=== PATIENT | male | born 1940 | race Caucasian/White ===

== ENCOUNTER 2024-08-24 15:21 | Inpatient (IN) | payer OTHER, SELFPAY ==
[2024-08-24] VITALS (15 sets, daily range): BP systolic 73–112; BP diastolic 53–84; BMI 26.4; BMI 26.8
[2024-08-24 12:05] LABS: % Basophils 0.4 % (0-2); % Eosinophils 2.1 % (0-6); % Immature Granulocytes 0.3 % (0-0.5); % Lymphocytes 24.1 % (20.5-51.1); % Monocytes 17.2 % (1.7-9.3); % Neutrophils 55.9 % (42.2-75.2); Absolute Eosinophils 0.2 10^3/uL (0-0.7); Absolute Lymphocytes 1.8 10^3/uL (1.2-3.4); Absolute Monocytes 1.3 10^3/uL (0.1-0.6); Absolute Neutrophils 4.2 10^3/uL (1.4-6.5); Hematocrit 46.8 % (39.0-52.0); Hemoglobin 15.8 g/dL (13.0-18.0); Mean Corp Hgb Conc. 33.8 g/dL (33.0-37.0); Mean Corpuscular Hgb 29.8 pg (27.0-31.0); Mean Corpuscular Volume 88.1 fL (80.0-94.0); Mean Platelet Volume 9.3 fL (7.4-10.4); Nucleated Red Blood Cells % 0 % (-); Platelet Count 198 10^3/uL (130-400); Red Blood Cell Count 5.31 10^6/uL (4.70-6.10); Red Cell Dist. Width 13.6 % (11.5-14.5); White Blood Cell Count 7.5 10^3/uL (4.8-10.8)
[2024-08-24 12:27] LABS: ALT (SGPT) 34 U/L (0-50); AST (SGOT) 82 U/L (17-59); Albumin 4.4 g/dl (3.5-5.0); Alkaline Phosphatase 36 U/L (38-126); Blood Urea Nitrogen 40 mg/dl (9-20); Calcium 9.2 mg/dl (8.4-10.2); Carbon Dioxide 24 mmol/L (22-30); Chloride 97 mmol/L (98-107); Estimated Creatinine Clearance 44 ml/min; Glucose 107 mg/dl (70-99); Potassium 3.8 mmol/L (3.5-5.1); Sodium 136 mmol/L (135-145); Total Bilirubin 0.5 mg/dl (0.2-1.3); Total Protein 6.9 g/dl (6.3-8.2); eGFR > 60.00
--- NOTE | 2024-08-24 12:27 | ED.GENMED ---
History of Present Illness
General
Chief Complaint: Weakness
Source: patient and spouse
Exam Limitations: none
Time Seen by Provider: 08/24/24 11:59
Nursing documentation reviewed up to this point in time: agreed with
History of Present Illness
History of Present Illness:
84 yo male w h/o NIDDM, HTN, HLD, CHF, diagnosed with Covid 4 days ago, has had sinus stuffiness and blowing nose a lot. Has a chronic cough from COPD and states that's no worse. Denies fever/chills. Denies n/v/d/c.
Is here for general weakness, denies dizziness but feel weak and 'my legs give out.' Fell 3 days ago getting OOB, fell yesterday in bathroom after BM, today at 7:30 a.m. heard a thud in bathroom, yelled 'where are you?' He states 'I'm in bed,'
she went to the bathroom and found him 'sprawled out on the floor on his back.' Asked 'are you alright?' He stated 'yeah.' states he's been appropriately responding since. She help him up and walked him to bed.
Pt denies hitting head or any other injury from falls. Not anticoagulated.
Past History
Past History
ED Past Medical History: Cancer (kidney), CHF, COPD, HTN, Hypercholesterolemia and NIDDM
ED Past Surgical History: Cardiac (stent x 2) and Other
Social History
Tobacco: Former smoker
Alcohol: None
Personal:
Living: with family
Employment: Retired
Review of Systems
Review of Systems
Allergies reviewed?: Yes
All Other Systems: ROS reviewed and negative except as documented in HPI and ROS
Constitutional: Reports fatigue; Denies fever
EENT: Denies sore throat
Respiratory: Reports cough (chronic intermittent); Denies trouble breathing
Cardiac: Denies chest pain, diaphoresis, palpitations or syncope
ABD/GI: Reports anorexia; Denies abdominal pain, nausea, vomiting or diarrhea
: Denies dysuria, frequency or difficulty voiding
Musculoskeletal: Reports no symptoms
Skin: Reports no symptoms
Neurological: Reports weakness (generalized, 'my legs give out.'); Denies dizzy or headache
Phy Exam
Physical Exam
Physical Exam:
GENERAL: No acute distress. A&Ox3.
CONSTITUTIONAL: Afebrile.
EYES: clear, conjunctivae normal
ENMT: moist mucus membranes, Pharynx nl
RESPIRATORY: Regular respirations, nonlabored, lungs with coarse sounds L lower lung field. Occasional cough, no hypoxemia
CARDIOVASCULAR: Irregular rhythm on bedside monitor. Rate 90'2 -120's. no murmurs, no rubs.
GI: Soft, nontender, normal BS
MUSCULOSKELETAL: Moves with ease. Well perfused.
SKIN: Warm, dry, pink
PSYCH: Normal mood and affect. Well kept, interactive and appropriate
NEUROLOGIC: Awake, alert and oriented. No focal neurological deficits
Course
Orders/Labs/Results
Orders:
Orders
08/24/24 11:31
Electrocardiogram (*1) Urgent
Reason for Study: Fatigue / Weakness
EKG- Treatment ONCE
08/24/24 11:50
CMP [Comprehensive Metabolic Panel] Urgent
Complete Blood Count/With Diff Urgent
TSH Reflex To Free T4 Urgent
Comment: ADD ON
08/24/24 12:27
CR Chest - 2 Views Urgent
Comment:
Reason For Exam: weakness, covid+
08/24/24 12:36
Add On- LAB Urgent
Tests Added?: TSH reflex T4
08/24/24 13:06
0.9% Sodium Chloride 500 ml [Nss] 500 ml IV BOLUS
08/24/24 13:07
NT-proBNP Urgent
Troponin I Urgent
Influenza A+B Rapid Molecular Urgent
NURY Source: Nasal Swab
Specimen Description:
08/24/24 13:11
Add On- LAB Urgent
Tests Added?: BNP
Abnormal Lab Results
08/24/24 08/24/24
11:50 13:07
Absolute Monos (auto) 1.3 H 10^3/uL
(0.1-0.6)
Monocytes % 17.2 H %
(1.7-9.3)
Chloride 97 L mmol/L
(98-107)
BUN 40 H mg/dl
(9-20)
Glucose 107 H mg/dl
(70-99)
AST 82 H U/L
(17-59)
Alkaline Phosphatase 36 L U/L
(38-126)
Troponin I 0.163 H* ng/ml
08/24/24 11:50
08/24/24 11:50
Vital Signs
Initial and Last Documented VS:
Initial Vital Signs
Temp Pulse Resp BP Pulse Ox
98.5 F 51 20 83/57 94
08/24/24 10:50 08/24/24 10:50 08/24/24 10:50 08/24/24 10:50 08/24/24 10:50
Last Documented Vital Signs
Temp Pulse Resp BP Pulse Ox
98.5 F 51 20 83/57 94
08/24/24 10:50 08/24/24 10:50 08/24/24 10:50 08/24/24 10:50 08/24/24 10:50
MDM/Problems Addressed
Differential Diagnosis Includes:
dehydration, Covid, Flu, PNA
New onset Afib, [place],
MDM/Problems Addressed:
84 yo male w h/o NIDDM, HTN, HLD, CHF, diagnosed with Covid 4 days ago, has had sinus stuffiness and blowing nose a lot. Has a chronic cough from COPD and states that's no worse. Denies fever/chills. Denies n/v/d/c.
Is here for general weakness, denies dizziness but feel weak and 'm legs give out.' Fell 3 days ago getting OOB, fell yesterday in bathroom after BM, today at 7:30 a.m. heard a thud in bathroom, yelled 'where are you?' He states 'I'm in bed,'
she went to the bathroom and found him 'sprawled out on the floor on his back.' Asked 'are you alright?' He stated 'yeah.' states he's been appropriately responding since. She help him up and walked him to bed.
Pt denies hitting head or any other injury from falls. Not anticoagulated.
Bedside monitor A fib, no hx Afib
1:10 p.m.
BP 81/57 HR 103 Fluid bolus ordered
EKG: A Fib w RVR rate 101
CBC normal
CMP: BUN 40 otherwise unremarkable
1:50 p.m.
Troponin 0.163
After IVF 500 ml BP 94/63 HR 103
Pt remains alert, pleasant
Plan: Admit: Covid, generalize weakness, dehydration, New onset afib, elevated Troponin (likely due to Covid infection and volume depletion, will defer anticoagulation to Hospitalist and cardiology
Hospitalist notified of admission
*Critical Care Note
Total Time (30-74mins, 75-104mins- exclusive of procedures): Not Applicable
ED Attending Note
-
Portions of this chart may have been created with voice recognition software.� Occasional wrong word or��sound alike� substitutions may have occurred due to the inherent limitations of voice recognition software.
Discharge Plan
Departure
Patient Disposition: Admit
Date of Disposition: 08/24/24
Time of Disposition: 14:00
Admit to: Telemetry
Presentation/result/management discussed w/ accepting MD/DO: Hospitalist
Condition: Fair
Discharge Problem:
New onset a-fib, COVID-19, Acute dehydration, General weakness, Fall
Prescriptions:
No Action
aspirin 325 mg Tablet
325 mg PO DAILY
Theragen Tablet
1 tab PO DAILY
losartan 100 mg Tablet
100 mg PO QPM
vitamin E 268 mg (400 unit) Capsule
268 mg PO DAILY
coenzyme Q10 [Co Q-10] 100 mg Capsule
100 mg PO DAILY
rosuvastatin 40 mg Tablet
40 mg PO QPM
cholecalciferol (vitamin D3) 25 mcg (1,000 unit) Tablet
25 mcg PO DAILY
hydrochlorothiazide 12.5 mg Tablet
12.5 mg PO DAILY
cod liver oil Capsule
1 cap PO DAILY
ascorbic acid (vitamin C) [Vitamin C] 500 mg Tablet
500 mg PO BID
loratadine 10 mg Tablet
10 mg PO DAILY
Healthy Eyes 300 mcg-200 mg-27 mg-2 mg Tablet
1 tab PO DAILY
Neuriva Original 50-50 mg Tablet,Chewable
1 tab PO DAILY
ashwagandha extract 100 mg tablet
100 mg PO DAILY
turmeric 2,250 mg tablet
1 tab PO DAILY
metformin 500 mg Tablet
500 mg PO DAILY
metoprolol tartrate 25 mg Tablet
25 mg PO BID
Referrals:
UNKNOWN - PT DOES,NOT KNOW [Family Provider] -
Interventions
Interventions:
*Risk Screen - Suicide Last Done: 08/24/24 10:50
*General Assessment Last Done: 08/24/24 10:50
*Neglect/Abuse Screening Last Done: 08/24/24 10:50
ED- Fall Risk Assessment Last Done: 08/24/24 11:29
*ED COVID-19 Vaccine History Last Done: 08/24/24 10:50
ED- Cardiac Assessment Last Done: 08/24/24 11:29
ED- Neurological Assessment Last Done: 08/24/24 11:29
ED- Pulmonary Assessment Last Done: 08/24/24 11:29
Discharge Date and Time
Print Language: SINHALA
[2024-08-24] MEDS: NSS 500 IV ×2 (13:10→15:30)
[2024-08-24 13:43] LABS: Troponin I 0.163 ng/ml
[2024-08-24 13:47] LABS: TSH Reflex To Free T4 4.12 uIU/ml (0.47-4.68)
--- NOTE | 2024-08-24 14:05 | HPS.HSE ---
Addendum entered and electronically signed by West Mccauley MD 08/24/24 15:12:
I saw and examined the patient.
The ASSOCIATE's note was reviewed and I agree with the note.
Comment:
84-year-old male extensive past medical history of CAD status post stents x 2 approximately 20 years ago, primary hypertension, hyperlipidemia, COPD/emphysema, renal cancer status post nephrectomy, suspected diabetes who is presenting from home with
complaint of weakness. Patient had fall at home. Patient was also complaining of weakness. Patient denies hitting her head. Denies any prior history of falls. Denies any prior history of gastrointestinal bleeding, hematuria or hemoptysis
hemorrhagic stroke. Denies any known contraindication to anticoagulation. Denies any productive cough. States feeling better after receiving IV fluids. Denies any chest pain. Denies any nausea or vomiting. Said my legs gave out at home but now
feeling better.
General no acute distress, talkative
HEENT neck is supple, trachea is midline, hide glasses noted
Cardiac S1-S2 irregularly irregular heart rate around 90-110 on telemetry
Pulmonary nonlabored respiration, not tachypneic, anterior clear to auscultation
Abdomen positive bowel sounds soft nontender nondistended
Extremities no edema
Neuro awake alert oriented, nonfocal grossly intact
Psych pleasant
Acute COVID-19 infection
On room air stable
Chest x-ray with COPD emphysema. No focal infiltrates noted.
Symptomatic management.
No need for systemic steroids
New onset of atrial fibrillation with rapid ventricular response
Currently heart rate around 90-110
Continue with Lopressor 25 mg twice daily
Elevated Dayne Vasc score of 5. 6 if with hx of heart failure.
Patient agreed to be started on anticoagulation.
Start patient on Eliquis 5 mg twice daily eventually. Will start patient on hep gtt for now.
Elevated troponin
CAD status post stents x 2
If Eliquis started may need to consider decreasing dose of aspirin
Continue with beta-andrea, statin.
Check echocardiogram
EKG with irregularly irregular atrial fibrillation with rapid ventricular response. Ventricular rate of 101. QTc of 451. No significant ST or T wave changes noted
Did not have chest pain at home. Currently denies chest pain.
Troponin elevation likely could be multifactorial due to new onset of atrial fibrillation, COVID-19 infection, dehydration etc. Trend trop for now. If continues to trend up may require ischemic work up.
[facility] at [place].
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
Trend cr.
no prior baseline labs
Primary hypertension now with mild hypotension
Continue with Lopressor
Hold hydrochlorothiazide and losartan for now
Additional 500 cc IV fluids
Hyperlipidemia
Continue with statin
Diabetes mellitus
Hold metformin
Check A1c
ISS and Accu-Cheks
DVT prophylaxis-hep gtt
Full code
I spent a total of 78 minutes with the patient or on the floor. More than 50% of this time involved counseling and coordination of care.
Original Note:
Family Physician
-
Family Physician: NOT KNOW UNKNOWN - PT DOES
Chief Complaint
-
Weakness
History of Present Illness
Patient is a 84-year-old male with past medical history significant for hypertension, COPD, NIDDM, CAD and hyperlipidemia who presented to [facility] for evaluation of generalzed weakness and Covid. Patient reports approximately 5 days ago he
tested positive for Covid after several days of sinus congestion and pressure. He did go to [place] [facility] in which they confirmed Covid positive and did not order paxlovid as he was too far out of window. Since then he reports continued sinus pressure
and drainage with cough from post nasal drip and has generalized weakness resulting in 2 falls and denies any injuries or hitting head. He denies any fever, chills, chest pain, palpitations, shortness of breath, nausea, vomiting, constipation,
diarrhea or urinary symptoms.
Medical History
Past Medical History
Past Medical History: Reports Other
Additional Past Medical History:
hypertension
COPD
CAD
NIDDM
hyperlipidemia
hx kidney ca
Past Surgical History: Reports Other
Additional Past Surgical History:
Cardiac stent x2
Hernia repair
tumor removal from kidney
Social History
Tobacco: Former Smoker (quit 25 years ago, has 50 pack year history )
Alcohol: Former (stopped drinkin 50 years ago)
Drug: None
Personal:
Living: With Family
Employment: Retired
Family History
Family History: Not pertinent
Allergies / Home Medications
Allergies reflects when Allergies were last updated in [facility].
Home Medications with original date entered in [facility]
Allergy/Medication List:
Allergies
Allergy/AdvReac Type Severity Reaction Status Date / Time
No Known Allergies Allergy Unverified 08/24/24 10:55
Home Medications
ascorbic acid (vitamin C) 500 mg tablet (Vitamin C) 500 mg PO BID 08/24/24
ashwagandha extract 100 mg PO DAILY 08/24/24
aspirin 325 mg tablet 325 mg PO DAILY 08/24/24
cholecalciferol (vitamin D3) 25 mcg (1,000 unit) tablet 25 mcg PO DAILY 08/24/24
cod liver oil 1 cap PO DAILY 08/24/24
coenzyme Q10 100 mg capsule (Co Q-10) 100 mg PO DAILY 08/24/24
coffee extract 50 mg-phosphatidyl serine 50 mg chewable tablet (Neuriva Original) 1 tab PO DAILY 08/24/24
hydrochlorothiazide 12.5 mg tablet 12.5 mg PO DAILY 08/24/24
loratadine 10 mg tablet 10 mg PO DAILY 08/24/24
losartan 100 mg tablet 100 mg PO QPM 08/24/24
metformin 500 mg tablet 500 mg PO DAILY 08/24/24
metoprolol tartrate 25 mg tablet 25 mg PO BID 08/24/24
rosuvastatin 40 mg tablet 40 mg PO QPM 08/24/24
therapeutic multivitamin 1 tab PO DAILY 08/24/24
turmeric 1 tab PO DAILY 08/24/24
vit A 300 mcg-C 200 mg-E 27 mg-lutein 2 mg and minerals tablet (Healthy Eyes) 1 tab PO DAILY 08/24/24
vitamin E 268 mg (400 unit) capsule 268 mg PO DAILY 08/24/24
Review of Systems
-
History Source: Patient
Constitutional: Reports Fatigue
EENT: Reports Runny Nose and Other (sinus pressure)
Respiratory: Reports Cough (intermittent from post nasal drip)
Cardiac: Reports No Symptoms
Abdomen/GI: Reports No Symptoms
: Reports No Symptoms
Musculoskeletal: Reports No Symptoms
Skin: Reports No Symptoms
Neurological: Reports Weakness
Endocrine: Reports No Symptoms
Hematologic/Lymphatic: Reports No Symptoms
Psych: Reports No Symptoms
Physical Exam
Vital Signs
Vital Signs
Temp Pulse Resp BP Pulse Ox
98.5 F 51 20 83/57 94
08/24/24 10:50 08/24/24 10:50 08/24/24 10:50 08/24/24 10:50 08/24/24 10:50
Physical Exam
General: Well Developed, Well Nourished, No Apparent Distress, Comfortable and Conversant
HEENT: NormoCephalic, Moist mucous membranes, Atraumatic, PERRLA, [place] Conjunctivae, Nose Appears Normal, Ears Appear Normal and Neck Nontender
Respiratory: Clear and Non Labored Respirations
Cardiac: S1/S2 and Irregular Rhythm; No Murmur, Rub or Gallop
Breast: Deferred by me
GI: Soft, Non Tender, Non Distended and Normal Bowel Sounds; No Organomegaly
Rectal: Deferred by Provider
Genito-urinary: Deferred by me
Musculoskeletal: No Clubbing, No Cyanosis and No Edema
Skin: Warm and IV/Catheter Site; No Rash
Neuro: Awake, Alert, AO x 3 and Nonfocal/grossly intact
Hematologic/Lymphatic: No Lymphadenopathy
Psych: Calm and Intact Judgment/Insight
Laboratory Results
-
08/24/24 11:50
08/24/24 11:50
Laboratory Results
Total Bilirubin 0.5 mg/dl (0.2-1.3) 08/24/24 11:50
AST 82 U/L (17-59) H 08/24/24 11:50
ALT 34 U/L (0-50) 08/24/24 11:50
Alkaline Phosphatase 36 U/L (38-126) L 08/24/24 11:50
Troponin I 0.163 ng/ml H* 08/24/24 13:07
Data Reviewed
-
Diagnostic Radiology: Report Reviewed by me (CXR: 1. No radiographic evidence for pneumonia. 2. Mild bilateral lung hyperinflation suggesting chronic obstructive pulmonary disease (COPD) and possibly bilateral upper lobe emphysema. 3. Mild
scarring/subsegmental atelectasis in both lower lungs. )
Medical Tests (Nuc Med, Echo, EKG etc): Report Reviewed by me (EKG: ATRIAL FIBRILLATION WITH RAPID VENTRICULAR RESPONSE NONSPECIFIC ST ABNORMALITY)
Lab Data: Labs Reviewed by me (Troponin 0.163)
Impression/Plan
-
IMPRESSION/PLAN:
#new onset atrial fibrillation
EKG: ATRIAL FIBRILLATION WITH RAPID VENTRICULAR RESPONSE
NONSPECIFIC ST ABNORMALITY
- Admit to IMU
- Cardiology consult
- IVF bolus
- defer anticoagulation to Cardiology
- continue metoprolol
#hypertension
- continue metoprolol
- hold HCTZ,losartan
#CAD
- continue aspirin
#diabetes
- hold metformin
#hyperlipidemia
- continue rosuvastatin
#COPD
Code Status: Full code
DVT Prophylaxis: SCDs
[2024-08-24 14:33] LABS: NT-proBNP 7280 pg/ml
[2024-08-24] MEDS: HEPARIN 25000 UNITS/250 ML IV (15:54)
[2024-08-24 15:58] LABS: APTT 31.4 Sec (23.4-35.0)
[2024-08-24 16:12] LABS: Magnesium 2.1 mg/dl (1.6-2.3)
--- NOTE | 2024-08-24 20:47 | PTCARENOTE ---
Addendum entered by Becky Crespo RN 08/25/24 05:38:
Patient became tachycardic, HR up to the 130's and sustained 120's. Reached out to HARMEET Latif, received a STAT dose of metoprolol. Administered dose see OCT. Heparin gtt running. Based on PTT results decreased see Heparin worklist.
Original Note:
Patient transported here at change of shift. Stand and pivot from the stretcher to the bed pt experiencing some dizziness and says that he does feel weak. AAOx3 conversing and pleasant. A-fib pulse 105. Irregular apical pulse. Denies chest pain and
SOB. Placed on 2L NC O2 sat 94%. Lungs diminished throughout. Educated on using the urinal to void. Admission information, assessment and vitals charted see the worklist. Oriented to the unit and educated about the call [place]. Call tijer[place] is within
reach. Able to make needs known.
[2024-08-24 22:11] LABS: Glucose - Point of Care 129 mg/dl (70-99)
[2024-08-24] MEDS: CRESTOR 40 MG PO (22:22)
[2024-08-24] MEDS: VITAMIN C 500 MG PO (22:22)
[2024-08-24 22:51] LABS: APTT 78.8 Sec (23.4-35.0)
[2024-08-24 23:09] LABS: Troponin I 0.127 ng/ml
[2024-08-24] MEDS: LOPRESSOR PO (23:09)
[2024-08-25] VITALS (43 sets, daily range): BP systolic 75–123; BP diastolic 54–92; BMI 26.8
[2024-08-25 04:20] LABS: Troponin I 0.126 ng/ml
[2024-08-25] MEDS: LOPRESSOR 2.5 MG IV (05:15)
[2024-08-25 05:28] LABS: Hematocrit 44.8 % (39.0-52.0); Hemoglobin 14.6 g/dL (13.0-18.0); Mean Corp Hgb Conc. 32.6 g/dL (33.0-37.0); Mean Corpuscular Volume 89.1 fL (80.0-94.0); Mean Platelet Volume 9.1 fL (7.4-10.4); Platelet Count 175 10^3/uL (130-400); Red Blood Cell Count 5.03 10^6/uL (4.70-6.10); Red Cell Dist. Width 13.4 % (11.5-14.5); White Blood Cell Count 6.7 10^3/uL (4.8-10.8)
[2024-08-25 07:53] LABS: Glucose - Point of Care 84 mg/dl (70-99)
[2024-08-25] MEDS: ASPIRIN 325 MG PO (07:58)
[2024-08-25] MEDS: CLARITIN 10 MG PO (07:58)
[2024-08-25] MEDS: LOPRESSOR 25 MG PO (08:01)
[2024-08-25] MEDS: VITAMIN C 500 MG PO ×2 (08:01→19:53)
[2024-08-25] MEDS: VITAMIN D3 (cholecalciferol) 25 MCG PO (08:01)
[2024-08-25] MEDS: THERAGRAN 1 TABLET PO (08:01)
[2024-08-25 08:38] LABS: Blood Urea Nitrogen 31 mg/dl (9-20); Calcium 8.4 mg/dl (8.4-10.2); Carbon Dioxide 23 mmol/L (22-30); Chloride 103 mmol/L (98-107); Estimated Creatinine Clearance 59 ml/min; Glucose 98 mg/dl (70-99); HDL Cholesterol 33 mg/dl; LDL Cholesterol, Calculated 54 mg/dl; Magnesium 1.9 mg/dl (1.6-2.3); Potassium 3.2 mmol/L (3.5-5.1); Sodium 139 mmol/L (135-145); Total Cholesterol 106 mg/dl (50-199); Triglyceride 99 mg/dl (10-149); Very Low Density Lipoprotein 19 mg/dl (0-30); eGFR > 60.00
--- NOTE | 2024-08-25 08:42 | CON.CAR ---
Addendum entered and electronically signed by Julien Gonsalez MD 08/25/24 11:09:
I saw and examined the patient.
The EPIC DIRECTOR or PA's note was reviewed and I agree with the note.
Comment: General: Well developed, well nourished in NAD.
Neck: Supple, no JVD, HJR, carotids +2 B/L, no bruits bilaterally.
Heart: Non displaced PMI, irregular, no murmurs, No S3, S4, no rubs.
Lungs: Scattered rhonchi
Abdomen: Normal bowel sounds, soft, non-tender, non-distended.
Extremities: No clubbing, cyanosis or edema bilaterally.
Neuro: Grossly nonfocal, awake, alert and oriented x3.
Jonathon has a history of PCI at [facility] at least 20 years ago as well as hypertension, hyperlipidemia, diabetes, COPD, renal cancer status post nephrectomy. He presented with weakness and falls. He is found to be COVID-positive as well as rapid
A-fib with indeterminate troponins in the 0.1 range.
Rate control in A-fib remains poor. Will increase Lopressor. Will change heparin to Eliquis. Will check echocardiogram but suspect troponin elevation is non ischemic myocardial injury. proBNP is elevated but no obvious CHF. He was on room air
but is now on 2 L. May consider IV Lasix if remains on oxygen but suspect hypoxemia is COVID related.
Original Note:
Consultation
Consultation Request
Date/Time Consultation Performed: 08/25/24
Requesting Provider: Dr. Mccauley
Performing Provider: [place]ña [place] PA-C for Dr. Gonsalez
Reason for Consultation: covid, afib
Medical History
-
Chief Complaint: weakness
History of Present Illness:
Patient is an 84 yo M with PMH of CAD s/p remote PCI further details unknown at this time, HTN, HLD, DM, COPD, renal cancer s/p nephrectomy who presented to with weakness and falls. Fell several days ago while trying to get out of bed, then fell
day prior to admission while in bathroom. No LOC. Tested covid positive. Noted to be in afib with RVR, new diagnosis of unclear duration. Follows with security assurance analyst at [place]. Trops stable in 0.1 range. No CP. Cardiology consulted for evaluation.
PMH:
CAD s/p remote PCI, details unknown
HTN
HLD
DM
COPD
RCC s/p nephrectomy
Past Medical History
Past Medical History: Other (in HPI)
Social History
Tobacco: Former Smoker
Personal:
Living: With Family
Employment: Retired
Allergies / Home Medications
Allergy/AdvReac Type Severity Reaction Status Date / Time
No Known Allergies Allergy Unverified 08/24/24 10:55
�Medication �Instructions �Recorded �Confirmed �Type
ascorbic acid (vitamin C) 500 mg 500 mg PO BID Supplement 08/24/24 08/24/24 History
tablet (Vitamin C)
ashwagandha extract 100 mg PO DAILY Supplement 08/24/24 08/24/24 History
aspirin 325 mg tablet 325 mg PO DAILY Blood Clot 08/24/24 08/24/24 History
Prevention/Tx
cholecalciferol (vitamin D3) 25 25 mcg PO DAILY Supplement 08/24/24 08/24/24 History
mcg (1,000 unit) tablet
cod liver oil 1 cap PO DAILY Supplement 08/24/24 08/24/24 History
coenzyme Q10 100 mg capsule (Co 100 mg PO DAILY Supplement 08/24/24 08/24/24 History
Q-10)
coffee extract 50 mg-phosphatidyl 1 tab PO DAILY Supplement 08/24/24 08/24/24 History
serine 50 mg chewable tablet
(Neuriva Original)
hydrochlorothiazide 12.5 mg tablet 12.5 mg PO DAILY Blood Pressure 08/24/24 08/24/24 History
loratadine 10 mg tablet 10 mg PO DAILY Allergies 08/24/24 08/24/24 History
losartan 100 mg tablet 100 mg PO QPM Blood Pressure 08/24/24 08/24/24 History
metformin 500 mg tablet 500 mg PO DAILY Diabetes 08/24/24 08/24/24 History
metoprolol tartrate 25 mg tablet 25 mg PO BID Blood Pressure 08/24/24 08/24/24 History
rosuvastatin 40 mg tablet 40 mg PO QPM High Cholesterol 08/24/24 08/24/24 History
therapeutic multivitamin 1 tab PO DAILY Supplement 08/24/24 08/24/24 History
turmeric 1 tab PO DAILY Supplement 08/24/24 08/24/24 History
vit A 300 mcg-C 200 mg-E 27 1 tab PO DAILY Supplement 08/24/24 08/24/24 History
mg-lutein 2 mg and minerals tablet
(Healthy Eyes)
vitamin E 268 mg (400 unit) capsule 268 mg PO DAILY Supplement 08/24/24 08/24/24 History
Review of Systems
-
History Source: Patient
All other systems: Negative unless noted
Physical Exam
Vital Signs
Temp Pulse Resp BP Pulse Ox
98.1 F 108 16 100/73 92
08/25/24 03:00 08/25/24 08:01 08/25/24 08:00 08/25/24 08:01 08/25/24 08:05
Lab Results
08/25/24 04:39
08/25/24 06:48
Troponin I 0.126 ng/ml H* 08/25/24 03:31
[id number] Pept 7280 pg/ml 08/24/24 13:07
Impression / Plan
-
Primary Sweatband Separator: [facility]
Assessment:
Presentation with weakness, falls
Acute covid illness
Atrial fibrillation with RVR, new diagnosis of unclear duration
Hypokalemia
Elevated troponin
CAD s/p remote PCI, details unknown
HTN
HLD
DM
COPD
RCC s/p nephrectomy
ECHO 08/25/24: pending
Plan:
-Patient presented with weakness and several recent falls
-tested positive for COVID. continue supportive care
-Also noted to be in atrial fibrillation with rapid ventricular response, new diagnosis of unclear duration
-Rate control limited by relative hypotension. Will attempt to increase Lopressor to 25 mg every 6 hours with hold parameters in place for improved rate control
-Noted history of significant bleeding events. Will plan to reduce OP aspirin dose to 81 mg daily. Will transition IV heparin to Eliquis 5 mg twice daily starting this evening.
-Check echo
-TSH WNL
-Troponins elevated but stable in 0.12 range. No chest pain. History of remote stents with details unknown. Suspected nonischemic myocardial injury in setting of COVID and rapid A-fib. Consider for outpatient ischemic evaluation through primary
security assurance analyst once recovered
-LDL 54. continue OP crestor
-proBNP 7280. CXR without evidence of acute CHF. follow volume status in setting of rapid afib.
-replete K
Data Reviewed
-
EKG: Tracing Personally Visualized and interpreted
Radiology: Report Reviewed by me
Labs: Labs Reviewed by me
[2024-08-25] MEDS: KCL 40 MEQ PO (09:22)
[2024-08-25 09:37] LABS: Glycohemoglobin (HgbA1c) 6.3 % (4.0-5.6)
[2024-08-25] MEDS: NSS 250 IV (10:28)
[2024-08-25 11:12] LABS: APTT 110.9 Sec (23.4-35.0)
--- NOTE | 2024-08-25 11:40 | PTCARENOTE ---
Patients bloos pressure dropped to 75/57 after morning dose of Lopressor. Notified Cardiology and Hospitalist. Patient stated that he was asymptomatic. 250 ml bolus administered. BP is now 101/60 heart rate afib at 90s.
[2024-08-25 11:46] LABS: Glucose - Point of Care 97 mg/dl (70-99)
--- NOTE | 2024-08-25 13:35 | W.PN.HOSP.TC ---
Today's Communication/Plan
-
hep gtt to eliquis
repeat CXR
ECHO
Wean o2
Monitor HR/BP closely
Assessment / Plan
Assessment / Plan
Acute COVID-19 infection
Chest x-ray with COPD emphysema. No focal infiltrates noted.
Symptomatic management.
No need for systemic steroids
New onset of atrial fibrillation with rapid ventricular response
Currently heart rate around 90-110
Continue with Lopressor dose decreased as with hypotension
Elevated Dayne Vasc score of 5. 6 if with hx of heart failure.
Patient agreed to be started on anticoagulation.
Plan to stop heparin gtt and start eliquis
Elevated troponin likely could be multifactorial due to new onset of atrial fibrillation, COVID-19 infection, dehydration etc.
CAD status post stents x 2
If Eliquis started may need to consider decreasing dose of aspirin
Continue with beta-andrea, statin.
Check echocardiogram
EKG with irregularly irregular atrial fibrillation with rapid ventricular response. Ventricular rate of 101. QTc of 451. No significant ST or T wave changes noted
Did not have chest pain at home. Currently denies chest pain.
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
Acute hypoxic respiratory insufficiency
Likely secondary atelectasis versus low likelihood of pulmonary edema. Possibility of COVID related.
Check repeat x-ray
If w/ severe pulmonary edema can consider trial of IV Lasix if blood pressure can tolerate it
Incentive spirometry
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
Trend cr.
no prior baseline labs
Primary hypertension now with mild hypotension
Continue with Lopressor
Hold hydrochlorothiazide and losartan for now
Hyperlipidemia
Continue with statin
Pre Diabetes mellitus
Hold metformin
Check A1c at 6.3
Hypokalemia
replete/monitor
COPD/emphysema
Not in acute exacerbation
DVT prophylaxis-hep gtt
Full code
Anticipated Discharge: > 48 hours
Subjective/Interval History
-
Date of Service: August 25, 2024
remains in afib RVR
Hypotension and receiving IVF
Objective Data
-
Labs:
Laboratory Results
08/25/24 08/25/24 08/25/24
04:39 06:48 10:41
WBC 6.7
Hgb 14.6
Hct 44.8
Plt Count 175
APTT 112.0 H 110.9 H
Sodium Cancelled 139
Potassium Cancelled 3.2 L
Chloride Cancelled 103
Carbon Dioxide Cancelled 23
BUN Cancelled 31 H
Creatinine Cancelled 0.9
Glucose Cancelled 98
Calcium Cancelled 8.4
Vital Signs:
Vital Signs
Temp Pulse Resp BP Pulse Ox
97.9 F 86 24 101/60 92
08/25/24 07:05 08/25/24 11:30 08/25/24 11:30 08/25/24 11:15 08/25/24 11:47
I&O
08/24/24 08/25/24 08/26/24
06:59 06:59 06:59
Intake Total 550 / 550
Output Total 600 / 600
Balance -600 / -600 550 / 550
Physical Exam
-
General: Well Developed and No Apparent Distress
HEENT: Normocephalic, Atraumatic, Moist Mucous Membranes and Oxygen
Respiratory: Clear to Auscultation
Cardiac: S1/S2 and Irregular Rhythm; Negative Murmur, Rub or Gallop
GI: Soft, Nontender, Nondistended and Normal Bowel Sounds; Negative Organomegaly
Rectal: Deferred by Provider
Musculoskeletal: No Clubbing, No Cyanosis and No Edema
Skin: Negative Rash
Neuro: Awake, AO x 3, No Motor Deficits and Nonfocal/Grossly Intact
Psych: Calm
Data Reviewed
-
Total Time Spent with Patient (in minutes): 55
[2024-08-25] MEDS: LOPRESSOR PO (13:57)
--- NOTE | 2024-08-25 15:56 | CM ---
Patient with Hx falls, recent COVID +. O2 2L. Afib with elevated HR today. Echo ordered. Receiving Heparin gtt.
Spoke with patient who resides with his in a 1 story house with finished basement, 2 [address]UM[address].
The patient has been independent in ADLs and ambulation without using an assistive device.
The patient says he fell twice at home recently. He states he feels wobbly on his feet today when getting OOB.
DME - [facility]
No prior VN or SNF.
PCP - Nannette Perez [facility]
Pharmacy - [facility]
is well and can assist at home as needed.
Message to Dr Mccauley requesting PT/OT Evals when medically appropriate.
Patient receptive to VN services - will wait till seen by therapy.
Plan follow up after seen by PT/OT.
[2024-08-25] MEDS: CRESTOR 40 MG PO (17:38)
[2024-08-25] MEDS: LOPRESSOR 12.5 MG PO ×2 (17:38→23:11)
[2024-08-25] MEDS: ELIQUIS 5 MG PO (19:53)
--- NOTE | 2024-08-25 23:15 | PTCARENOTE ---
Pt AAOx3, pleasant. Heparin gtt d/c'd and to be stopped at 1999. Heparin gtt stopped and Eliquis given PO. TECHNOLOGY METHODOLOGY CONSULTANT reviewed labs and gave OK to draw next PTT with morning lab work. A-fib on tele. HR 112. When pt sat up to use the urinal HR up to 145.
Bed alarm on due to trying to stand to void. Pt appears to be resting comfortably. Call tijerina is within reach
[2024-08-26] VITALS (12 sets, daily range): BP systolic 96–118; BP diastolic 67–83; BMI 27.0
[2024-08-26 05:09] LABS: Hematocrit 43.3 % (39.0-52.0); Hemoglobin 14.6 g/dL (13.0-18.0); Mean Corp Hgb Conc. 33.7 g/dL (33.0-37.0); Mean Corpuscular Hgb 29.3 pg (27.0-31.0); Mean Corpuscular Volume 86.9 fL (80.0-94.0); Mean Platelet Volume 9.4 fL (7.4-10.4); Platelet Count 165 10^3/uL (130-400); Red Blood Cell Count 4.98 10^6/uL (4.70-6.10); Red Cell Dist. Width 13.2 % (11.5-14.5); White Blood Cell Count 6.5 10^3/uL (4.8-10.8)
[2024-08-26] MEDS: LOPRESSOR PO ×2 (05:37→22:46)
[2024-08-26 05:45] LABS: Blood Urea Nitrogen 30 mg/dl (9-20); Calcium 8.5 mg/dl (8.4-10.2); Carbon Dioxide 26 mmol/L (22-30); Chloride 103 mmol/L (98-107); Estimated Creatinine Clearance 67 ml/min; Glucose 98 mg/dl (70-99); Magnesium 1.8 mg/dl (1.6-2.3); Potassium 3.6 mmol/L (3.5-5.1); Sodium 138 mmol/L (135-145); eGFR > 60.00
--- NOTE | 2024-08-26 06:00 | PTCARENOTE ---
Rec'd pt from previous RN. Pt pleasant, cooperative. Did set bed alarm off once throughout shift, pt stated that he had to stand up to use the urinal. This RN assisted pt to stand to use urinal. HR increased to 160s with ambulation, but returned to
110s-120s with getting back in bed. Scheduled medication given per MAR without complication. Maintained on 2L O2. Pt denies additional complaints at this time. 0600 lopressor held d/t admin parameters. Call tijerina within reach. Bed alarm in place for
pt safety.
[2024-08-26] MEDS: VITAMIN D3 (cholecalciferol) 25 MCG PO (10:18)
[2024-08-26] MEDS: CLARITIN 10 MG PO (10:18)
[2024-08-26] MEDS: THERAGRAN 1 TABLET PO (10:18)
[2024-08-26] MEDS: VITAMIN C 500 MG PO ×2 (10:18→20:00)
[2024-08-26] MEDS: LASIX 40 MG IV (10:19)
[2024-08-26] MEDS: LOW STRENGTH ASPIRIN 81 MG PO (10:19)
[2024-08-26] MEDS: ELIQUIS 5 MG PO ×2 (10:19→19:59)
[2024-08-26] MEDS: FLUSH (NSS) 1 FLUSH IV (10:20)
--- NOTE | 2024-08-26 10:55 | W.PN.CARDCBS ---
Today's Communication / Plan
-
Increase Lopressor for heart rate control of A-fib
Continue Eliquis
Give dose of IV Lasix for continued hypoxemia and elevated proBNP
Impression / Plan
-
Primary Acquisition Cost Estimator: NAMAN
Assessment:
Presentation with weakness, falls
Acute covid illness
Atrial fibrillation with RVR, new diagnosis of unclear duration
Acute diastolic CHF
Nonischemic myocardial injury with peak troponin 0.163
CAD s/p remote PCI, details unknown
HTN
HLD
DM
COPD
RCC s/p nephrectomy
ECHO 08/25/24: Ejection fraction 50 to 55%
Plan:
He remains hypoxic
proBNP was 7200 and will add a dose of IV Lasix
Heart rate control remains suboptimal in A-fib
Will increase Lopressor
Continue Eliquis
Progress Note - Acquisition Cost Estimator
Subjective
Date of Service: August 26, 2024
No complaints.
Objective
Labs:
08/26/24 04:40
08/26/24 04:40
Labs
Hgb 14.6 g/dL (13.0-18.0) 08/26/24 04:40
Hct 43.3 % (39.0-52.0) 08/26/24 04:40
Plt Count 165 10^3/uL (130-400) 08/26/24 04:40
APTT 110.9 Sec (23.4-35.0) H 08/25/24 10:41
Sodium 138 mmol/L (135-145) 08/26/24 04:40
Potassium 3.6 mmol/L (3.5-5.1) 08/26/24 04:40
BUN 30 mg/dl (9-20) H 08/26/24 04:40
Creatinine 0.8 mg/dL (0.7-1.3) 08/26/24 04:40
Glucose 98 mg/dl (70-99) 08/26/24 04:40
Troponins
08/24/24 08/24/24 08/25/24
13:07 22:30 03:31
Troponin I 0.163 H* 0.127 H* 0.126 H*
08/25/24
07:59
Troponin I Cancelled
Vital Signs and I&O:
Vital Signs
Temp Pulse Resp BP Pulse Ox
98.3 F 126 23 110/70 94
08/26/24 04:07 08/26/24 10:00 08/26/24 10:00 08/26/24 10:00 08/26/24 10:00
Vital Signs
Temp Pulse Resp BP Pulse Ox
98.3 F 126 23 110/70 94
08/26/24 04:07 08/26/24 10:00 08/26/24 10:00 08/26/24 10:00 08/26/24 10:00
Intake & Output
08/24/24 08/25/24 08/26/24 08/27/24
06:59 06:59 06:59 06:59
Intake Total 750 / 750
Output Total 600 / 600 1450 / 1450
Balance -600 / -600 -700 / -700
Physical Exam
Physical Exam
General: Well developed, well nourished in NAD.
Neck: Supple, no JVD, HJR, carotids +2 B/L, no bruits bilaterally.
Heart: Non displaced PMI, RRR, no murmurs, No S3, S4, no rubs.
Lungs: Scattered rhonchi
Extremities: No clubbing, cyanosis or edema bilaterally.
Neuro: Grossly nonfocal, awake, alert and oriented x3.
--- NOTE | 2024-08-26 11:15 | PTCARENOTE ---
Patient AAOX3, on covid precautions. Spo2 91%-93% on 2L o2 via n/c. Lungs diminished, occasional dry cough noted. Afib with heart rates up to 150. New order for increased dose of metoprolol waiting for pharmacy to profile. Patient on bedrest
due to high HR. Appetite good, using urinal independently. Fall risk for recent fall at home. Using call tijer[place] appropriately. Will continue to monitor frequently.
--- NOTE | 2024-08-26 11:29 | W.PN.HOSP.TC ---
Today's Communication/Plan
-
Monitor heart rate
Adjusted dose of Lopressor
IV Lasix
Assessment / Plan
Assessment / Plan
Acute COVID-19 infection
Chest x-ray with COPD emphysema. No focal infiltrates noted.
Symptomatic management.
No need for systemic steroids
New onset of atrial fibrillation with rapid ventricular response
Continue with Lopressor dose increased to 25 mg every 6 hours
Elevated Dayne Vasc score of 5. 6 if with hx of heart failure.
Patient agreed to be started on anticoagulation.
Started on Eliquis.
Elevated troponin likely could be multifactorial due to new onset of atrial fibrillation, COVID-19 infection, dehydration etc.
CAD status post stents x 2
Continue with baby aspirin 81 mg.
Continue with beta-andrea, statin.
Echo with EF of 50 to 55%. Diastolic function indeterminate due to atrial fibrillation. No regional wall motion abnormality.
EKG with irregularly irregular atrial fibrillation with rapid ventricular response. Ventricular rate of 101. QTc of 451. No significant ST or T wave changes noted
Did not have chest pain at home. Currently denies chest pain.
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
Acute hypoxic respiratory insufficiency Possibility of COVID related versus acute HFpEF versus atelectasis
Plan for IV Lasix
Incentive spirometry
Acute HFpEF
Lasix per cardiology. Monitor blood pressure closely.
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
Trend cr.
no prior baseline labs
Primary hypertension now with mild hypotension
Continue with Lopressor
Hold hydrochlorothiazide and losartan for now
Hyperlipidemia
Continue with statin
Pre Diabetes mellitus
Hold metformin
Check A1c at 6.3
Hypokalemia
replete/monitor
COPD/emphysema
Not in acute exacerbation
DVT prophylaxis-eliquis
Full code
Anticipated Discharge: > 48 hours
Subjective/Interval History
-
Date of Service: August 26, 2024
Remains in atrial fibrillation with rapid ventricular response
Remains on oxygen
States feeling better
Denies significant cough
Objective Data
-
Labs:
Laboratory Results
08/26/24
04:40
WBC 6.5
Hgb 14.6
Hct 43.3
Plt Count 165
Sodium 138
Potassium 3.6
Chloride 103
Carbon Dioxide 26
BUN 30 H
Creatinine 0.8
Glucose 98
Calcium 8.5
Vital Signs:
Vital Signs
Temp Pulse Resp BP Pulse Ox
97.5 F 126 23 110/70 93
08/26/24 07:05 08/26/24 10:00 08/26/24 10:00 08/26/24 10:00 08/26/24 11:08
I&O
08/25/24 08/26/24 08/27/24
06:59 06:59 06:59
Intake Total 750 / 750 480 / 480
Output Total 600 / 600 1450 / 1450
Balance -600 / -600 -700 / -700 480 / 480
Physical Exam
-
General: Well Developed and No Apparent Distress
HEENT: Normocephalic, Atraumatic, Moist Mucous Membranes and Oxygen
Respiratory: Decreased Breath Sounds
Cardiac: S1/S2, Irregular Rhythm and Tachycardic; Negative Murmur, Rub or Gallop
GI: Soft, Nontender, Nondistended and Normal Bowel Sounds; Negative Organomegaly
Rectal: Deferred by Provider
Musculoskeletal: No Clubbing, No Cyanosis and No Edema
Skin: Negative Rash
Neuro: Awake, AO x 3, No Motor Deficits and Nonfocal/Grossly Intact
Psych: Calm
[2024-08-26] MEDS: LOPRESSOR 25 MG PO ×2 (11:40→16:36)
[2024-08-26] MEDS: CRESTOR 40 MG PO (16:36)
[2024-08-27] VITALS (13 sets, daily range): BP systolic 92–131; BP diastolic 54–105; BMI 26.0
[2024-08-27] MEDS: LOPRESSOR 25 MG PO (04:22)
[2024-08-27 05:19] LABS: Blood Urea Nitrogen 26 mg/dl (9-20); Calcium 8.7 mg/dl (8.4-10.2); Carbon Dioxide 29 mmol/L (22-30); Chloride 99 mmol/L (98-107); Estimated Creatinine Clearance 67 ml/min; Glucose 106 mg/dl (70-99); Potassium 3.5 mmol/L (3.5-5.1); Sodium 138 mmol/L (135-145); eGFR > 60.00
[2024-08-27] MEDS: LOW STRENGTH ASPIRIN 81 MG PO (09:27)
[2024-08-27] MEDS: ELIQUIS 5 MG PO ×2 (09:27→19:36)
[2024-08-27] MEDS: VITAMIN C 500 MG PO ×2 (09:27→19:36)
[2024-08-27] MEDS: THERAGRAN 1 TABLET PO (09:28)
[2024-08-27] MEDS: VITAMIN D3 (cholecalciferol) 25 MCG PO (09:28)
[2024-08-27] MEDS: CLARITIN 10 MG PO (09:28)
--- NOTE | 2024-08-27 11:07 | W.PN.CARDCBS ---
Today's Communication / Plan
-
IV Lasix dose now
Change Lopressor to twice daily and change parameters to allow dosing be given unless systolic blood pressure less than 90
Discussed with nursing
Impression / Plan
-
Primary Cattle Trader: NAMAN
Assessment:
Presentation with weakness, falls
Acute covid illness
Atrial fibrillation with RVR, new diagnosis of unclear duration
Acute diastolic CHF
Nonischemic myocardial injury with peak troponin 0.163
CAD s/p remote PCI, details unknown
HTN
HLD
DM
COPD
RCC s/p nephrectomy
ECHO 08/25/24: Ejection fraction 50 to 55%
Plan:
He remains hypoxic but had nice diuresis with IV Lasix given on 08/26
Weight may be down is much as 6 pounds
Will give another dose of IV Lasix to try to get off oxygen
Heart rate control remains suboptimal in A-fib but Lopressor is being held for systolic blood pressures less than 100
Will change Lopressor to twice daily and put parameters to hold for systolic blood pressure less than 90
Continue Eliquis
Consider outpatient cardioversion if remains in A-fib
Discussed with nursing
Progress Note - Cattle Trader
Subjective
Date of Service: August 27, 2024
No complaints
Objective
Labs:
08/26/24 04:40
08/27/24 04:27
Labs
Hgb 14.6 g/dL (13.0-18.0) 08/26/24 04:40
Hct 43.3 % (39.0-52.0) 08/26/24 04:40
Plt Count 165 10^3/uL (130-400) 08/26/24 04:40
APTT 110.9 Sec (23.4-35.0) H 08/25/24 10:41
Sodium 138 mmol/L (135-145) 08/27/24 04:27
Potassium 3.5 mmol/L (3.5-5.1) 08/27/24 04:27
BUN 26 mg/dl (9-20) H 08/27/24 04:27
Creatinine 0.8 mg/dL (0.7-1.3) 08/27/24 04:27
Glucose 106 mg/dl (70-99) H 08/27/24 04:27
Troponins
08/24/24 08/24/24 08/25/24
13:07 22:30 03:31
Troponin I 0.163 H* 0.127 H* 0.126 H*
08/25/24
07:59
Troponin I Cancelled
Vital Signs and I&O:
Vital Signs
Temp Pulse Resp BP Pulse Ox
98.8 F 105 22 109/85 92
08/27/24 07:24 08/27/24 08:00 08/27/24 08:00 08/27/24 08:00 08/27/24 08:00
Vital Signs
Temp Pulse Resp BP Pulse Ox
98.8 F 105 22 109/85 92
08/27/24 07:24 08/27/24 08:00 08/27/24 08:00 08/27/24 08:00 08/27/24 08:00
Intake & Output
08/25/24 08/26/24 08/27/24 08/28/24
06:59 06:59 06:59 06:59
Intake Total 750 / 750 1055 / 1055 320 / 320
Output Total 600 / 600 1450 / 1450 2024 290 / 290
Balance -600 / -600 -700 / -700 -970 / -970
Physical Exam
Physical Exam
General: Well developed, well nourished in NAD.
Neck: Supple, no JVD, HJR, carotids +2 B/L, no bruits bilaterally.
Heart: Non displaced PMI, irregular, no murmurs, No S3, S4, no rubs.
Lungs: Scattered rhonchi
Extremities: No clubbing, cyanosis or edema bilaterally.
Neuro: Grossly nonfocal, awake, alert and oriented x3.
[2024-08-27] MEDS: OCEAN, SALINE MIST 2 SPRAYS NASAL (11:54)
[2024-08-27] MEDS: FLUSH (NSS) 1 FLUSH IV (11:54)
[2024-08-27] MEDS: LASIX 40 MG IV (11:54)
--- NOTE | 2024-08-27 12:20 | W.PN.HOSP.TC ---
Today's Communication/Plan
-
Monitor HR
IV lasix
wean o2
Assessment / Plan
Assessment / Plan
Acute COVID-19 infection
Chest x-ray with COPD emphysema. No focal infiltrates noted.
Symptomatic management.
No need for systemic steroids
New onset of atrial fibrillation with rapid ventricular response
Continue with Lopressor dose increased to 50mg BID
Elevated Dayne Vasc score of 5. 6 if with hx of heart failure.
Patient agreed to be started on anticoagulation.
Started on Eliquis.
Elevated troponin likely could be multifactorial due to new onset of atrial fibrillation, COVID-19 infection, dehydration etc.
CAD status post stents x 2
Continue with baby aspirin 81 mg.
Continue with beta-andrea, statin.
Echo with EF of 50 to 55%. Diastolic function indeterminate due to atrial fibrillation. No regional wall motion abnormality.
EKG with irregularly irregular atrial fibrillation with rapid ventricular response. Ventricular rate of 101. QTc of 451. No significant ST or T wave changes noted
Did not have chest pain at home. Currently denies chest pain.
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
Acute hypoxic respiratory insufficiency Possibility of COVID related versus acute HFpEF versus atelectasis
Plan for IV Lasix-intermittent dosing
Incentive spirometry
Acute HFpEF
Lasix per cardiology. Monitor blood pressure closely.
Good urinary output with 40mg IV lasix.
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
Trend cr.
no prior baseline labs
Primary hypertension now with mild hypotension
Continue with Lopressor
Hold hydrochlorothiazide and losartan for now
Hyperlipidemia
Continue with statin
Pre Diabetes mellitus
Hold metformin
Check A1c at 6.3
Hypokalemia
replete/monitor
COPD/emphysema
Not in acute exacerbation
DVT prophylaxis-eliquis
Full code
d/w with daughter and spouse at bedside
Anticipated Discharge: > 48 hours
Subjective/Interval History
-
Date of Service: August 27, 2024
remains in afib
Objective Data
-
Labs:
Laboratory Results
08/27/24
04:27
Sodium 138
Potassium 3.5
Chloride 99
Carbon Dioxide 29
BUN 26 H
Creatinine 0.8
Glucose 106 H
Calcium 8.7
Vital Signs:
Vital Signs
Temp Pulse Resp BP Pulse Ox
98.8 F 105 22 109/85 92
08/27/24 07:24 08/27/24 08:00 08/27/24 08:00 08/27/24 08:00 08/27/24 08:00
I&O
08/26/24 08/27/24 08/28/24
06:59 06:59 06:59
Intake Total 750 / 750 1055 / 1055 320 / 320
Output Total 1450 / 1450 2024 290 / 290
Balance -700 / -700 -970 / -970 30 / 30
Physical Exam
-
General: Well Developed and No Apparent Distress
HEENT: Normocephalic, Atraumatic, Moist Mucous Membranes and Oxygen
Respiratory: Decreased Breath Sounds
Cardiac: S1/S2, Irregular Rhythm and Tachycardic; Negative Murmur, Rub or Gallop
GI: Soft, Nontender, Nondistended and Normal Bowel Sounds; Negative Organomegaly
Rectal: Deferred by Provider
Musculoskeletal: No Clubbing, No Cyanosis and No Edema
Skin: Negative Rash
Neuro: Awake, AO x 3, No Motor Deficits and Nonfocal/Grossly Intact
Psych: Calm
Data Reviewed
-
Total Time Spent with Patient (in minutes): 55
[2024-08-27] MEDS: LOPRESSOR 5 MG IV (14:37)
--- NOTE | 2024-08-27 18:19 | PTCARENOTE ---
Patient out of bed to chair today for several hours. Assistance x1. Patient remains on 2L o2, spo2 90%-93% sob on exertion. Metoprolol dose adjusted by cardiology. Remains in afib HR up to 130's at times. PRN IV metoprolol added. Received lasix
does x1 today. Using call tijer[place] appropriately.
[2024-08-27] MEDS: LOPRESSOR 75 MG PO (18:35)
[2024-08-27] MEDS: CRESTOR 40 MG PO (18:35)
[2024-08-28] VITALS (18 sets, daily range): BP systolic 94–115; BP diastolic 64–80; PULSE 95–110; O2SAT 94–95; BMI 26.1
[2024-08-28 04:05] LABS: Hematocrit 47.3 % (39.0-52.0); Hemoglobin 15.2 g/dL (13.0-18.0); Mean Corp Hgb Conc. 32.1 g/dL (33.0-37.0); Mean Corpuscular Volume 90.1 fL (80.0-94.0); Mean Platelet Volume 9.6 fL (7.4-10.4); Platelet Count 168 10^3/uL (130-400); Red Blood Cell Count 5.25 10^6/uL (4.70-6.10); Red Cell Dist. Width 12.6 % (11.5-14.5); White Blood Cell Count 7.8 10^3/uL (4.8-10.8)
--- NOTE | 2024-08-28 04:34 | PTCARENOTE ---
No acute events overnight. Remained on 1 liter NC. Afebrile.
[2024-08-28 04:52] LABS: Blood Urea Nitrogen 31 mg/dl (9-20); Calcium 8.8 mg/dl (8.4-10.2); Carbon Dioxide 29 mmol/L (22-30); Chloride 97 mmol/L (98-107); Estimated Creatinine Clearance 59 ml/min; Glucose 106 mg/dl (70-99); Potassium 3.9 mmol/L (3.5-5.1); Sodium 135 mmol/L (135-145); eGFR > 60.00
[2024-08-28] MEDS: THERAGRAN 1 TABLET PO (08:13)
[2024-08-28] MEDS: LOPRESSOR 75 MG PO ×2 (08:13→20:41)
[2024-08-28] MEDS: VITAMIN D3 (cholecalciferol) 25 MCG PO (08:13)
[2024-08-28] MEDS: LOW STRENGTH ASPIRIN 81 MG PO (08:14)
[2024-08-28] MEDS: ELIQUIS 5 MG PO ×2 (08:14→20:40)
[2024-08-28] MEDS: VITAMIN C 500 MG PO ×2 (08:14→20:40)
[2024-08-28] MEDS: CLARITIN 10 MG PO (08:14)
--- NOTE | 2024-08-28 10:18 | W.PN.CARDCBS ---
Today's Communication / Plan
-
He is now on room air
Changed to oral Lasix
Impression / Plan
-
Primary Industrial Relations Worker: NAMAN
Assessment:
Presentation with weakness, falls
Acute covid illness
Atrial fibrillation with RVR, new diagnosis of unclear duration
Acute diastolic CHF
Nonischemic myocardial injury with peak troponin 0.163
CAD s/p remote PCI, details unknown
HTN
HLD
DM
COPD
RCC s/p nephrectomy
ECHO 08/25/24: Ejection fraction 50 to 55%
Plan:
He was able to be weaned to room air
Will change to oral Lasix
Heart rate control of A-fib is suboptimal at times but okay at present on Lopressor
Continue Eliquis
Consider outpatient cardioversion if remains in A-fib
Discussed with nursing
Progress Note - Industrial Relations Worker
Subjective
Date of Service: August 28, 2024
No complaints
Objective
Labs:
08/28/24 03:53
08/28/24 03:53
Labs
Hgb 15.2 g/dL (13.0-18.0) 08/28/24 03:53
Hct 47.3 % (39.0-52.0) 08/28/24 03:53
Plt Count 168 10^3/uL (130-400) 08/28/24 03:53
APTT 110.9 Sec (23.4-35.0) H 08/25/24 10:41
Sodium 135 mmol/L (135-145) 08/28/24 03:53
Potassium 3.9 mmol/L (3.5-5.1) 08/28/24 03:53
BUN 31 mg/dl (9-20) H 08/28/24 03:53
Creatinine 0.9 mg/dL (0.7-1.3) 08/28/24 03:53
Glucose 106 mg/dl (70-99) H 08/28/24 03:53
Vital Signs and I&O:
Vital Signs
Temp Pulse Resp BP Pulse Ox
98.4 F 110 23 94/64 93
08/28/24 03:00 08/28/24 08:13 08/28/24 06:00 08/28/24 08:13 08/28/24 06:00
Vital Signs
Temp Pulse Resp BP Pulse Ox
98.4 F 110 23 94/64 93
08/28/24 03:00 08/28/24 08:13 08/28/24 06:00 08/28/24 08:13 08/28/24 06:00
Intake & Output
08/26/24 08/27/24 08/28/24 08/29/24
06:59 06:59 06:59 06:59
Intake Total 750 / 750 1055 / 1055 1640 / 1640
Output Total 1450 / 1450 202 / 2024 1350 / 1350
Balance -700 / -700 -970 / -970 290 / 290
Physical Exam
Physical Exam
General: Well developed, well nourished in NAD.
Neck: Supple, no JVD, HJR, carotids +2 B/L, no bruits bilaterally.
Heart: Non displaced PMI, RRR, no murmurs, No S3, S4, no rubs.
Lungs: Scattered rhonchi at the bases
Extremities: No clubbing, cyanosis or edema bilaterally.
Neuro: Grossly nonfocal, awake, alert and oriented x3.
[2024-08-28] MEDS: LASIX 40 MG PO (11:00)
--- NOTE | 2024-08-28 11:40 | W.PN.HOSP.TC ---
Today's Communication/Plan
-
Monitor BP-lopressor dose increase
cont with diuretics
Tx out of IMU if BP/HR stable
Assessment / Plan
Assessment / Plan
Acute COVID-19 infection
Chest x-ray with COPD emphysema. No focal infiltrates noted.
Symptomatic management.
No need for systemic steroids
New onset of atrial fibrillation with rapid ventricular response
Continue with Lopressor. Dose increased to 75mg BID
Elevated Dayne Vasc score of 5. 6 if with hx of heart failure.
Patient agreed to be started on anticoagulation.
Started on Eliquis.
Elevated troponin likely could be multifactorial due to new onset of atrial fibrillation, COVID-19 infection, dehydration etc.
CAD status post stents x 2
Continue with baby aspirin 81 mg.
Continue with beta-andrea, statin.
Echo with EF of 50 to 55%. Diastolic function indeterminate due to atrial fibrillation. No regional wall motion abnormality.
EKG with irregularly irregular atrial fibrillation with rapid ventricular response. Ventricular rate of 101. QTc of 451. No significant ST or T wave changes noted
Did not have chest pain at home. Currently denies chest pain.
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
Acute hypoxic respiratory insufficiency Possibility of COVID related versus acute HFpEF versus atelectasis
Plan for IV Lasix-intermittent dosing
Incentive spirometry
Acute HFpEF
Lasix per cardiology. Monitor blood pressure closely.
Good urinary output with 40mg IV lasix.
Transitioned to po lasix
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
Trend cr.
no prior baseline labs
Primary hypertension now with mild hypotension
Continue with Lopressor
Hold hydrochlorothiazide and losartan for now and can probably stop on dc.
Hyperlipidemia
Continue with statin
Pre Diabetes mellitus
Hold metformin
Check A1c at 6.3
Hypokalemia
replete/monitor
COPD/emphysema
Not in acute exacerbation
DVT prophylaxis-eliquis
Full code
PT/OT
d/w with spouse at bedside
Anticipated Discharge: Within 24 hours
Subjective/Interval History
-
Date of Service: August 28, 2024
OFF oxygen but was tachypneic with conversation
[place] significantly weak after working with PT
Blood pressure on soft side.
Objective Data
-
Labs:
Laboratory Results
08/28/24
03:53
WBC 7.8
Hgb 15.2
Hct 47.3
Plt Count 168
Sodium 135
Potassium 3.9
Chloride 97 L
Carbon Dioxide 29
BUN 31 H
Creatinine 0.9
Glucose 106 H
Calcium 8.8
Vital Signs:
Vital Signs
Temp Pulse Resp BP Pulse Ox
97.4 F 92 22 104/73 91
08/28/24 07:00 08/28/24 10:00 08/28/24 10:00 08/28/24 11:00 08/28/24 10:00
I&O
08/27/24 08/28/24 08/29/24
06:59 06:59 06:59
Intake Total 1055 / 1055 1640 / 1640
Output Total 2024 1350 / 1350
Balance -970 / -970 290 / 290
Physical Exam
-
General: Well Developed and No Apparent Distress
HEENT: Normocephalic, Atraumatic and Moist Mucous Membranes
Respiratory: Decreased Breath Sounds
Cardiac: S1/S2, Irregular Rhythm and Tachycardic; Negative Murmur, Rub or Gallop
GI: Soft, Nontender, Nondistended and Normal Bowel Sounds; Negative Organomegaly
Rectal: Deferred by Provider
Musculoskeletal: No Clubbing, No Cyanosis and No Edema
Skin: Negative Rash
Neuro: Awake, AO x 3, No Motor Deficits and Nonfocal/Grossly Intact
Psych: Calm
Data Reviewed
-
Total Time Spent with Patient (in minutes): 55
--- NOTE | 2024-08-28 16:09 | CM ---
Patient with Hx falls, recent COVID +. Novel Resp Precautions. Room air. Remains in A fib. PT recommends HH vs no needs. OT recommends Home Health.
Spoke with patient; reviewed his current functional mobility as per PT/OT. Patient would like VN for nurse check at home as well as PT/OT. Offered VN choice and he selected [facility]. Patient states he is hoping to go home soon. His , son in law
or daughter will provide a ride home.
Referral placed for [facility].
Plan home with [facility], with family.
[2024-08-28] MEDS: CRESTOR 40 MG PO (17:07)
--- NOTE | 2024-08-28 18:41 | PTCARENOTE ---
Rec'd pt this AM. OOB to chair with min assist. Pt briefly had temp 100.4 but resolved on it's own without intervention. Weaned pt to RA. O2 sat 91-95%. A fib on tele. HR elevated with ambulation and as time gets close to next dose of meds. no
complaints. resting comfortably
[2024-08-28] MEDS: OCEAN, SALINE MIST 2 SPRAYS NASAL (20:42)
--- NOTE | 2024-08-28 20:52 | PTCARENOTE ---
pt received from allegra RUTLEDGE. Pt AAOx3, pleasant. Pt afib on monitor. positive pedal pulses. Pt took HS pills whole with water. Pt on RA, sats 92%, hx of COPD. denies current SOB. assessment as documented. Call light in reach. Safe environment
maintained.
[2024-08-29] VITALS (9 sets, daily range): BP systolic 87–104; BP diastolic 61–85; BMI 25.9
[2024-08-29 04:17] LABS: Blood Urea Nitrogen 31 mg/dl (9-20); Calcium 8.4 mg/dl (8.4-10.2); Carbon Dioxide 31 mmol/L (22-30); Chloride 97 mmol/L (98-107); Estimated Creatinine Clearance 59 ml/min; Glucose 96 mg/dl (70-99); Potassium 3.8 mmol/L (3.5-5.1); Sodium 136 mmol/L (135-145); eGFR > 60.00
--- NOTE | 2024-08-29 09:24 | W.PN.CARDCBS ---
Today's Communication / Plan
-
Stable cardiology status
Sign off
Impression / Plan
-
Primary Tool Marker: NAMAN
Assessment:
Presentation with weakness, falls
Acute covid illness
Atrial fibrillation with RVR, new diagnosis of unclear duration
Acute diastolic CHF
Nonischemic myocardial injury with peak troponin 0.163
CAD s/p remote PCI, details unknown
HTN
HLD
DM
COPD
RCC s/p nephrectomy
ECHO 08/25/24: Ejection fraction 50 to 55%
Plan:
Stable cardiology status on room air
Atrial fibrillation with some elevated heart rate at times but reasonable rate control
Stable cardiology status for discharge
Will consider outpatient cardioversion if remains in A-fib
Discussed with primary service
Will sign off and arrange follow-up
Progress Note - Tool Marker
Subjective
Date of Service: August 29, 2024
No complaints
Objective
Labs:
08/28/24 03:53
08/29/24 03:30
Labs
Hgb 15.2 g/dL (13.0-18.0) 08/28/24 03:53
Hct 47.3 % (39.0-52.0) 08/28/24 03:53
Plt Count 168 10^3/uL (130-400) 08/28/24 03:53
APTT 110.9 Sec (23.4-35.0) H 08/25/24 10:41
Sodium 136 mmol/L (135-145) 08/29/24 03:30
Potassium 3.8 mmol/L (3.5-5.1) 08/29/24 03:30
BUN 31 mg/dl (9-20) H 08/29/24 03:30
Creatinine 0.9 mg/dL (0.7-1.3) 08/29/24 03:30
Glucose 96 mg/dl (70-99) 08/29/24 03:30
Vital Signs and I&O:
Vital Signs
Temp Pulse Resp BP Pulse Ox
98.2 F 99 14 102/79 92
08/29/24 06:46 08/29/24 06:00 08/29/24 06:00 08/29/24 06:00 08/29/24 04:00
Vital Signs
Temp Pulse Resp BP Pulse Ox
98.2 F 99 14 102/79 92
08/29/24 06:46 08/29/24 06:00 08/29/24 06:00 08/29/24 06:00 08/29/24 04:00
Intake & Output
08/27/24 08/28/24 08/29/24 08/30/24
06:59 06:59 06:59 06:59
Intake Total 1055 / 1055 1640 / 1640
Output Total 2024 / 2024 1350 / 1350 650 / 650
Balance -970 / -970 290 / 290 -650 / -650
Physical Exam
Physical Exam
General: Well developed, well nourished in NAD.
Neck: Supple, no JVD, HJR, carotids +2 B/L, no bruits bilaterally.
Heart: Non displaced PMI, irregular, no murmurs, No S3, S4, no rubs.
Lungs: Scattered rhonchi
Extremities: No clubbing, cyanosis or edema bilaterally.
Neuro: Grossly nonfocal, awake, alert and oriented x3.
[2024-08-29] MEDS: THERAGRAN 1 TABLET PO (10:01)
[2024-08-29] MEDS: VITAMIN D3 (cholecalciferol) 25 MCG PO (10:01)
[2024-08-29] MEDS: CLARITIN 10 MG PO (10:01)
[2024-08-29] MEDS: LASIX 40 MG PO (10:01)
[2024-08-29] MEDS: LOW STRENGTH ASPIRIN 81 MG PO (10:02)
[2024-08-29] MEDS: ELIQUIS 5 MG PO (10:02)
[2024-08-29] MEDS: VITAMIN C 500 MG PO (10:02)
--- NOTE | 2024-08-29 10:40 | VNURNOTE ---
Home Health Liaison spoke with patient to discuss [facility] nurse/therapy, visits, schedule and homebound status. Patient is agreeable and understands that visits at home will be 2-3 x per week to assess and teach medical management. Patient is aware
that [facility] will contact them for start of care in 1-2 days after discharge from . [facility] referral updated in [facility].
[2024-08-29] MEDS: LOPRESSOR 75 MG PO (11:44)
--- NOTE | 2024-08-29 13:15 | W.PN.HOSP.TC ---
Today's Communication/Plan
-
dc to home
Assessment / Plan
Assessment / Plan
Acute COVID-19 infection (onset 10 days ago)
Chest x-ray with COPD emphysema. No focal infiltrates noted.
Symptomatic management.
No need for systemic steroids
New onset of atrial fibrillation with rapid ventricular response
Continue with Lopressor. Dose increased to 75mg BID
Elevated Dayne Vasc score of 5. 6 if with hx of heart failure.
Patient agreed to be started on anticoagulation.
Started on Eliquis.
Elevated troponin likely could be multifactorial due to new onset of atrial fibrillation, COVID-19 infection, dehydration etc.
CAD status post stents x 2
Continue with baby aspirin 81 mg. (call placed and confirmed with Dr. Gonsalez)
Continue with beta-andrea, statin.
Echo with EF of 50 to 55%. Diastolic function indeterminate due to atrial fibrillation. No regional wall motion abnormality.
EKG with irregularly irregular atrial fibrillation with rapid ventricular response. Ventricular rate of 101. QTc of 451. No significant ST or T wave changes noted
Did not have chest pain at home. Currently denies chest pain.
[facility] at [place], plans to follow up, at least initially with Dr. Gonsalez
Acute hypoxic respiratory insufficiency Possibility of COVID related versus acute HFpEF versus atelectasis
Plan for IV Lasix-intermittent dosing
Incentive spirometry
Acute HFpEF
Lasix per cardiology. Monitor blood pressure closely.
Good urinary output with 40mg IV lasix.
Transitioned to po lasix
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
Trend cr.
no prior baseline labs
Primary hypertension now with mild hypotension
Continue with Lopressor
Hold hydrochlorothiazide and losartan for now and can probably stop on dc.
Hyperlipidemia
Continue with statin
Pre Diabetes mellitus
Hold metformin
Check A1c at 6.3
Hypokalemia
replete/monitor
COPD/emphysema
Not in acute exacerbation
DVT prophylaxis-eliquis
Full code
PT/OT
d/w with spouse at bedside
DC now
see dictated note
More than 30 minutes spent in discharge including
Final examination of the patient
Summarizing hospital stay
Instructions for continuing care to all relevant caregivers
Preparation of discharge records, prescriptions, and referral forms
Total time spent (in minutes): 45
Anticipated Discharge: Today
Subjective/Interval History
-
Date of Service: August 29, 2024
Feels much better, has been cleared for surgery for dc and is anxiously awaiting dc
Objective Data
-
Labs:
Laboratory Results
08/29/24
03:30
Sodium 136
Potassium 3.8
Chloride 97 L
Carbon Dioxide 31 H
BUN 31 H
Creatinine 0.9
Glucose 96
Calcium 8.4
Vital Signs:
Vital Signs
Temp Pulse Resp BP Pulse Ox
98 F 96 14 102/66 92
08/29/24 11:05 08/29/24 11:44 08/29/24 06:00 08/29/24 11:44 08/29/24 04:00
I&O
08/28/24 08/29/24 08/30/24
06:59 06:59 06:59
Intake Total 1640 / 1640
Output Total 1350 / 1350 650 / 650
Balance 290 / 290 -650 / -650
Review of Systems
-
History Source: Patient and Coordinated Provider
Constitutional: Denies Fever
EENT: Reports No Symptoms Reported
Respiratory: Reports Cough and Wheezing
Cardiac: Reports No Symptoms; Denies Chest Pain
Abdomen/GI: Reports No Symptoms
Genitourinary: Reports No Symptoms
Physical Exam
-
General: Well Developed, Well Nourished and No Apparent Distress
HEENT: Normocephalic, Atraumatic and Moist Mucous Membranes
Respiratory: Wheezes (holoexpiratory wheeze (chronic) with good air movement)
Cardiac: S1/S2 and Irregular Rhythm
GI: Soft, Nontender and Nondistended
Genito-urinary: No Costovertebral Tender
Musculoskeletal: No Clubbing, No Cyanosis and No Edema
Neuro: Awake, Alert and Oriented
--- NOTE | 2024-08-29 13:59 | CM ---
Patient with Hx falls, recent COVID +. Novel Resp Precautions. Room air.
Met with patient and ; both agree to d/c home today with [facility]. IMM completed. says she doesn't drive so another family member will help provide transport home today.
Plan home today with [facility].
--- NOTE | 2024-08-29 17:43 | W.DS.TRANS ---
DC Summary - Room Service Manager
-
Discharge Instructions:
Sleep Apnea Risk Intermediate
Discharge Diagnosis/Procedures New Onset Atrial Fibrillation
Diet Low Sodium
Activity No strenuous activity
Driving Restrictions Not until seen by your Dr
Bathing Restrictions None
Blood Work CBC, BMP
Other Services VN
Instructions:
Stand-Alone Forms:
Changes to Home Medications: Yes
Discharge Medications:
DC Medications w/original date entered in [employer]
ascorbic acid (vitamin C) 500 mg tablet (Vitamin C) 500 mg PO BID Supplement 08/24/24
ashwagandha extract 100 mg PO DAILY Supplement 08/24/24
cholecalciferol (vitamin D3) 25 mcg (1,000 unit) tablet 25 mcg PO DAILY Supplement 08/24/24
cod liver oil 1 cap PO DAILY Supplement 08/24/24
coenzyme Q10 100 mg capsule (Co Q-10) 100 mg PO DAILY Supplement 08/24/24
coffee extract 50 mg-phosphatidyl serine 50 mg chewable tablet (Neuriva Original) 1 tab PO DAILY Supplement 08/24/24
loratadine 10 mg tablet 10 mg PO DAILY Allergies 08/24/24
metformin 500 mg tablet 500 mg PO DAILY Diabetes 08/24/24
rosuvastatin 40 mg tablet 40 mg PO QPM High Cholesterol 08/24/24
therapeutic multivitamin 1 tab PO DAILY Supplement 08/24/24
turmeric 1 tab PO DAILY Supplement 08/24/24
vit A 300 mcg-C 200 mg-E 27 mg-lutein 2 mg and minerals tablet (Healthy Eyes) 1 tab PO DAILY Supplement 08/24/24
vitamin E 268 mg (400 unit) capsule 268 mg PO DAILY Supplement 08/24/24
apixaban 5 mg tablet (Eliquis) 5 mg PO BID #60 tabs 08/29/24
aspirin 81 mg chewable tablet 81 mg PO DAILY #30 tabs 08/29/24
furosemide 40 mg tablet 40 mg PO DAILY #30 tabs 08/29/24
metoprolol tartrate 25 mg tablet 75 mg (3 x 25 mg) PO BID #100 tabs 08/29/24
Home Medication Changes
Eliquis started
Aspirin decreased to 81 mg daily
HCTZ and Losartan stopped
Metoprolol increased from 25 mg bid to 75 mg bid
Pending Results: No
== END 2024-08-29 14:52 | disposition home health service (06) | DRG 308 ==
LOC: IMU 15:21
PROVIDERS: Nurse Practitioner Family; Registered Nurse; ADMITTING PHYSICIAN Hospitalist; ATTENDING PHYSICIAN Internal Medicine; EMERGENCY PHYSICIAN Emergency Medicine; OTHER PHYSICIAN Internal Medicine Cardiovascular Disease
DX: I48.91 Unspecified atrial fibrillation (principal); I50.31 Acute diastolic (congestive) heart failure; U07.1 COVID-19; I5A Non-ischemic myocardial injury (non-traumatic); I25.10 Atherosclerotic heart disease of native coronary artery without angina pectoris; I11.0 Hypertensive heart disease with heart failure; E78.00 Pure hypercholesterolemia, unspecified; E11.9 Type 2 diabetes mellitus without complications; Z79.84 Long term (current) use of oral hypoglycemic drugs; J43.9 Emphysema, unspecified; Z90.5 Acquired absence of kidney; Z95.5 Presence of coronary angioplasty implant and graft; Z85.528 Personal history of other malignant neoplasm of kidney; W19.XXXA Unspecified fall, initial encounter; Y92.009 Unspecified place in unspecified non-institutional (private) residence as the place of occurrence of the external cause; E86.0 Dehydration; Z87.891 Personal history of nicotine dependence; Z79.82 Long term (current) use of aspirin; Z79.899 Other long term (current) drug therapy; E87.6 Hypokalemia
CPT/HCPCS: 93308; 71045; 71046; 80048; 80053; 80061; 82962; 83036; 83735; 83880; 84443; 84484; 85025; 85027; 85730; 87502; 93005; 93321; 93325; 96360; 97162; 97166; 99285